=== PATIENT | female | born 1950 | race Caucasian/White ===

== ENCOUNTER 2020-11-16 15:42 | Outpatient (RCR) | payer MEDICARE, SELFPAY ==
[2020-11-16] MEDS: COVID-19 VACC, MRNA(PFIZER)/PF 30 MCG/0.3 ML SYRINGE IM (10:39)
[2020-12-07] MEDS: COVID-19 VACC, MRNA(PFIZER)/PF 30 MCG/0.3 ML SYRINGE IM (10:28)
== END 2020-11-16 23:59 ==
LOC: IMMUN 15:42
PROVIDERS: PCP Internal Medicine; Visit Provider Family Medicine
DX: Z23 Encounter for immunization (principal)
CPT/HCPCS: 0001A; 0002A

== ENCOUNTER → 2025-07-20 | Outpatient (CLI) | payer MEDICARE, SELFPAY ==
--- NOTE | 2025-07-20 09:28 | STE_ITS ---
Reason For Study Reason For Study: Chest Pain Stress Results Protocol: Dhruv Protocol Maximum Predicted HR: 146 bpm Target HR: 124 bpm % Maximum Predicted HR: 97 % DurationHeart Rate Stage (mm:ss) (bpm) BP Comment Baseline 74 128/84No Chest Pain [facility]v Protocol Stage I 3:00 103 140/78No Chest Pain [facility]v Protocol Stage II 3:00 108 174/78No Chest Pain Dhruv Protocol Stage III 3:00 142 180/74No Chest Pain; Mild Dyspnea Recovery 93 130/72No Chest Pain Stress Duration: 9:00 mm:ss Maximum Stress HR: 142 bpm METS: 10 Baseline Echocardiogram Findings Stress Echo Wall motion Data Resting WM Intermediate WM Stress WM MMode/2D Measurements & Calculations LVOT diam: 2.0 cm LVOT area: 3.1 cm2 Doppler Measurements & Calculations Ao V2 max: 175.6 cm/sec LV V1 max: 115.6 cm/sec SV(LVOT): 79.0 ml Ao max P.3 mmHg LV V1 max P.3 mmHg Ao V2 mean: 117.9 cm/sec LV V1 mean P.6 mmHg Ao mean P.4 mmHg LV V1 mean: 90.3 cm/sec Ao V2 VTI: 37.4 cm LV V1 VTI: 25.8 cm AV (velocity ratio): 0.69 INESSA(I,D): 2.1 cm2 INESSA(V,D): 2.0 cm2 ECHO/Stress Test Echo w/o Contrast Interpretation Summary Exercise stress echo. 74-year-old lady with a history of chest pain. Resting EKG demonstrates normal sinus rhythm with a rate of 72 bpm normal inter vals noted resting blood pressure is 128/84 mmHg. The patient exercised according to the regular Dhruv protocol for total duration of 9 minutes attaining a maximum heart rate of 142 bpm which was 97% of max impacted heart rate and a wo rkload of 10.1 metabolic equivalents. At rest there were no ST or T wave changes noted suggest ischemia and at peak exer cise upsloping ST changes were noted we did not meet the criteria for ischemia. No clinical angina was noted. The resti ng blood pressure was 128/84 with a peak blood pressure 180/74 mmHg. No chest pain was noted the test was terminated due to target heart rate being achieved. Stress echocardiogram. The resting echocardiogram demonstrated ejection fractio n of 55%. At peak exercise there was increase in the ejection fraction to 65% with no wall motion abnormalities pres ent. Conclusion: Exercise stress echo with no EKG or echocardiographic criteria for ischemia at a high workload. Ordering Physician: Eduardo Milan Referring Physician: Eduardo Milan Performed By: Zuleyka Tovar RDCS
== END | disposition home or self-care (01) ==
LOC: CVS 09:27
PROVIDERS: PCP Internal Medicine; Referring Provider Internal Medicine Cardiovascular Disease; Visit Provider Internal Medicine Cardiovascular Disease
DX: R07.9 Chest pain, unspecified (principal)
CPT/HCPCS: 93017; 93350